=== PATIENT | male | born 1985 | race Caucasian/White ===

== ENCOUNTER 2023-11-12 14:35 | Emergency (ER) | payer BC, OTHER, SELFPAY ==
[2023-11-12] MEDS ORDERED: Bacitracin 1 PK ONE (16:21)
== END 2023-11-12 16:43 | disposition home or self-care (01) ==
LOC: NAV ERS 14:35
DX: S91.312A Laceration without foreign body, left foot, initial encounter (principal); Z55.6 Problems related to health literacy; W26.8XXA Contact with other sharp object(s), not elsewhere classified, initial encounter
CPT/HCPCS: 12004; 99282